=== PATIENT | female | born 1975 | race Caucasian/White ===

== ENCOUNTER 2018-06-09 12:04 | Emergency (ER) | payer OTHER ==
[~2018-06-09] VITALS: Ht 167.6 cm; Wt 71.8 kg
[~2018-06-09 12:04] MED LIST: ALBUAER2 INH; MOME50SP5; OXYSR10 PO; TRAM-10 PO
[2018-06-09 12:10] VITALS: TEMP 36.3; Ht 167.6 cm; Wt 71.8 kg
[2018-06-09] MEDS ORDERED: RABIES VACCINE (IMOVAX) HUMAN DIPL CELL 2.5 INTER.UNIT/ML SYR IM. ONE (12:30)
[2018-06-09] MEDS ORDERED: DIPHTHERIA/TETANUS/PERTUSSIS 0.5 ML SYR/VIAL IM. ONE (12:30)
[2018-06-09] MEDS ORDERED: RABIES IMMUNE GLOBULIN (HUMAN) 150 INTER.UNIT/ML 2 ML VIAL IM. ONE (12:30)
[2018-06-09] MEDS ORDERED: PRVHFAIN (12:43)
[2018-06-09] MEDS ORDERED: MULT-506 PO (12:43)
--- NOTE | 2018-06-09 15:39 | EMERGENCY ROOM VISIT NOTE ---
ED Visit Note First contact with patient: 12:18 CHIEF COMPLAINT: "Possible rabies vaccine". HISTORY OF PRESENT ILLNESS: This 43-year-old female patient presents to the emergency department via private vehicle for evaluation of a scratch by a stray cat 2 days ago. She notes that the cat at that time was thin in size, appeared malnourished and was disoriented. She notes that she tried to feed the cat and it would not eat. She notes that she is concerned that the cat could have been rapid. She denies any fevers or chills. She notes that another individual whom she was with at the time was bitten and she underwent the prophylactic series therefore came here for evaluation. She is unsure if her tetanus status. She denies pursuing or completing the series in the past. The patient has not had any complications from the previous injections. They deny any other complaints. REVIEW OF SYSTEMS: A 6 system review of systems was completed with positives and pertinent negatives listed in the HPI. ALLERGIES: None MEDICATIONS: As noted below PMH: Unchanged from previous visit. PHYSICAL EXAM: Vital Signs: Reviewed Nurse's notes, vital signs stable. GENERAL : 43-year-old female, in no acute distress, well-developed, well-nourished. HEAD: Atraumatic, without temporal or scalp tenderness. EYES: PERRLA, EOMI, no discharge or injection. SKIN: Normal. NEUROLOGICAL: Alert and cooperative. Sensory and motor functions grossly intact. EMERGENCY DEPARTMENT COURSE: I examined the patient. The patient was scratched by a cat that is per patient exhibiting concerning behavior that could indicate the cat may have rabies, and is a stray. Although the chance of the patient acquiring rabies from a cat scratch is extremely low, given the scenario do believe that vaccination is appropriate. Patient was in agreement and also requested vaccination. Tetanus was also updated. The patient was given 2.5 IU/ 1ml IM as well as weight appropriate immunoglobulin. Unfortunately the patient did have to wait for a bit of time as we were out of the immunoglobulin and it had to be delivered to our facility. It was provided without difficulty. The patient was observed for greater than 20 minutes with no reaction. The patient was discharged home in stable condition. She was educated upon when to return. Current/Historical Medications Scheduled Multivitamin (Multivitamin), 1 TAB PO DAILY Miscellaneous Medications Albuterol (Ventolin Hfa) Allergies Coded Allergies: No Known Allergies (Unverified , 09/30/11) Vital Signs Date Time Temp Pulse Resp B/P (MAP) Pulse Ox O2 Delivery O2 Flow Rate FiO2 06/09/18 16:14 50 18 166/104 97 06/09/18 12:10 36.3 61 16 145/93 98 Room Air Medications Administered Medications (Trade) Dose Ordered Sig/Mindi Route Start Time Stop Time Status Last Admin Dose Admin Diphtheria/ Pertussis/Tetanus Vacc (Adacel Inj) 0.5 ml ONCE ONCE IM. 06/09/18 12:30 06/09/18 12:31 DC 06/09/18 14:47 0.5 ML Rabies Vaccine Human Diploid Cell (Imovax Rabies) 2.5 interunit ONCE ONCE IM. 06/09/18 12:30 06/09/18 12:31 DC 06/09/18 14:46 2.5 INTERUNIT Rabies Immune Globulin (Imogam Rabies Inj) 1,436 interunit ONCE ONCE IM. 06/09/18 12:30 06/09/18 12:31 DC 06/09/18 14:48 1,436 INTERUNIT Departure Information Impression Primary Impression: Rabies, need for prophylactic vaccination against Dispostion Home / Self-Care Condition GOOD Referrals Patricio Lopez M.D. (PCP) Patient Instructions My [facility] Additional Instructions You were seen in the emergency department for the initial vaccination against rabies. It is important that you return on days 3, 7 and 14. Today is considered day 0. Please return on June 12, and . You will receive 1 injection each day that you return. Please watch for fevers, chills, redness or swelling at the injection sites. If this would develop please return. Please return with any new/concerning symptoms.
[2018-06-09 16:14] VITALS: BP 166/104; PULSE 50; O2SAT 97
== END 2018-06-09 16:17 | disposition home or self-care (01) ==
LOC: C.EDB 12:07 → C.EDD 16:17
DX: Z20.3 Contact with and (suspected) exposure to rabies (principal); W55.03XA Scratched by cat, initial encounter; Z23 Encounter for immunization

== ENCOUNTER 2018-06-12 08:06 | Emergency (ER) | payer OTHER ==
[~2018-06-12] VITALS: Ht 167.6 cm; Wt 72.0 kg
[~2018-06-12 08:06] MED LIST changes: -ALBUAER2 INH; -MOME50SP5; +MULT-506 PO; -OXYSR10 PO; +PRVHFAIN; -TRAM-10 PO
[2018-06-12 08:11] VITALS: BP 121/94; PULSE 73; TEMP 36.8; O2SAT 98; Ht 167.6 cm; Wt 72.0 kg
[2018-06-12] MEDS ORDERED: RABIES VACCINE (IMOVAX) HUMAN DIPL CELL 2.5 INTER.UNIT/ML SYR IM. ONE (08:15)
--- NOTE | 2018-06-12 08:34 | EMERGENCY ROOM VISIT NOTE ---
ED Visit Note First contact with patient: 08:14 CHIEF COMPLAINT: Rabies prophylaxis HISTORY OF PRESENT ILLNESS: This 43 patient presents to the emergency department for their 2nd rabies shot. The patient has not had any complications from the previous injections. They deny any other complaints. REVIEW OF SYSTEMS: A 6 system review of systems was completed with positives and pertinent negatives listed in the HPI. ALLERGIES: NKDA MEDICATIONS: Albuterol, multivitamin PMH: Unchanged from previous visit. PHYSICAL EXAM: Vital Signs: Reviewed Nurse's notes, vital signs stable. GENERAL : 43 y/o female, in no acute distress, well-developed, well-nourished. HEAD: Atraumatic, without temporal or scalp tenderness. EYES: PERRLA, EOMI, no discharge or injection. SKIN: Normal. NEUROLOGICAL: Alert and cooperative. Sensory and motor functions grossly intact. EMERGENCY DEPARTMENT COURSE: I examined the patient. The patient was given 1ml IM Imovax. The patient was observed for 20 minutes with no reaction. The patient was discharged home in stable condition. DIAGNOSIS: Rabies prophylaxis DISCHARGE INSTRUCTIONS: Continue vaccination schedule as directed. Return for any complications. Return on
== END 2018-06-12 08:30 | disposition home or self-care (01) ==
LOC: C.EDB 08:07 → C.EDA 08:30
DX: Z23 Encounter for immunization (principal); Z20.3 Contact with and (suspected) exposure to rabies; Z79.899 Other long term (current) drug therapy

== ENCOUNTER 2018-06-16 06:39 | Emergency (ER) | payer OTHER ==
[~2018-06-16] VITALS: Ht 167.6 cm; Wt 71.8 kg
[2018-06-16 06:43] VITALS: BP 124/80; PULSE 66; TEMP 36.8; O2SAT 100; Ht 167.6 cm; Wt 71.8 kg
[2018-06-16] MEDS ORDERED: RABIES VACCINE (IMOVAX) HUMAN DIPL CELL 2.5 INTER.UNIT/ML SYR IM. ONE (06:45)
--- NOTE | 2018-06-16 06:45 | EMERGENCY ROOM VISIT NOTE ---
ED Visit Note First contact with patient: 06:44 CHIEF COMPLAINT: Rabies prophylaxis HISTORY OF PRESENT ILLNESS: This 43 patient presents to the emergency department for their third rabies shot. The patient has not had any complications from the previous injections. They deny any other complaints. REVIEW OF SYSTEMS: A 6 system review of systems was completed with positives and pertinent negatives listed in the HPI. ALLERGIES: NKDA MEDICATIONS: Albuterol, multivitamin PMH: Unchanged from previous visit. PHYSICAL EXAM: Vital Signs: Reviewed Nurse's notes, vital signs stable. GENERAL : 43 y/o female, in no acute distress, well-developed, well-nourished. HEAD: Atraumatic, without temporal or scalp tenderness. EYES: PERRLA, EOMI, no discharge or injection. SKIN: Normal. NEUROLOGICAL: Alert and cooperative. Sensory and motor functions grossly intact. EMERGENCY DEPARTMENT COURSE: I examined the patient. The patient was given rabies vaccine IM Imovax. The patient was observed for 20 minutes with no reaction. The patient was discharged home in stable condition. DIAGNOSIS: Rabies prophylaxis DISCHARGE INSTRUCTIONS: Continue vaccination schedule as directed. Return for any complications. Return for completion of the rabies series. Current/Historical Medications Scheduled Multivitamin (Multivitamin), 1 TAB PO DAILY Miscellaneous Medications Albuterol (Ventolin Hfa) Allergies Coded Allergies: No Known Allergies (Unverified , 06/12/18) Vital Signs Date Time Temp Pulse Resp B/P (MAP) Pulse Ox O2 Delivery O2 Flow Rate FiO2 06/16/18 06:43 36.8 66 20 124/80 100 Room Air Departure Information Referrals Patricio Lopez M.D. (PCP) Patient Instructions My [facility]
== END 2018-06-16 06:55 | disposition home or self-care (01) ==
LOC: C.EDB 06:40 → C.EDA 06:55
DX: Z20.3 Contact with and (suspected) exposure to rabies (principal); Z23 Encounter for immunization

== ENCOUNTER 2018-06-23 06:55 | Emergency (ER) | payer OTHER ==
[~2018-06-23] VITALS: Ht 167.6 cm; Wt 73.0 kg
[2018-06-23 06:57] VITALS: BP 135/79; PULSE 55; TEMP 36.6; O2SAT 100; Ht 167.6 cm; Wt 73.0 kg
--- NOTE | 2018-06-23 07:08 | EMERGENCY ROOM VISIT NOTE ---
ED Visit Note First contact with patient: 07:02 CHIEF COMPLAINT: Rabies shot #4 HISTORY OF PRESENT ILLNESS: Patient is a 43-year-old female who returns the emergency department as advised for her fourth and final rabies vaccination. She denies any problems with the prior vaccinations, no questions or concerns. REVIEW OF SYSTEMS: Review of systems as per HPI. All other systems reviewed were negative. At least 3 systems reviewed. PMH: Electronic medical records are reviewed and summarized as above/below. See Problem List.. SOCIAL HISTORY: Patient lives at home. PHYSICAL EXAM: Vital Signs: Reviewed Nurse's notes. HEAD: Atraumatic, without temporal or scalp tenderness. EYES: PERRL, EOMI, no discharge or injection. SKIN: Normal. NEUROLOGICAL: Alert and cooperative. Sensory and motor functions grossly intact. EMERGENCY DEPARTMENT COURSE: The patient was given Imovax IM, observed and then discharged. Current/Historical Medications Scheduled Multivitamin (Multivitamin), 1 TAB PO DAILY Miscellaneous Medications Albuterol (Ventolin Hfa) Allergies Coded Allergies: No Known Allergies (Unverified , 06/12/18) Vital Signs Date Time Temp Pulse Resp B/P (MAP) Pulse Ox O2 Delivery O2 Flow Rate FiO2 06/23/18 06:57 36.6 55 18 135/79 100 Room Air Departure Information Impression Primary Impression: Rabies, need for prophylactic vaccination against Referrals Patricio Lopez M.D. (PCP) Patient Instructions My [facility] Additional Instructions Return to the ED as needed.
[2018-06-23] MEDS ORDERED: RABIES VACCINE (IMOVAX) HUMAN DIPL CELL 2.5 INTER.UNIT/ML SYR IM. ONE (07:15)
== END 2018-06-23 07:23 | disposition home or self-care (01) ==
LOC: C.EDB 06:55 → C.EDA 07:23
DX: Z23 Encounter for immunization (principal); Z20.3 Contact with and (suspected) exposure to rabies